=== PATIENT | female | born 1950 | race Caucasian/White ===

== ENCOUNTER 2020-10-04 14:16 | Inpatient (IN) ==
[2020-10-04] MEDS ORDERED: 0.9 % SODIUM CHLORIDE 1,000 ML IV ONE ×3 (14:43→16:56)
--- NOTE | 2020-10-04 15:18 | XRay Report ---
INDICATION: CP/dyspnea TECHNIQUE: AP portable upright chest x-ray COMPARISON: None FINDINGS: Lungs:Left perihilar infiltrate consistent with pneumonia. Follow-up radiographs recommended. Appearance is nonspecific. Covid pneumonia is possible Heart, vascular:No significant cardiomegaly. Pulmonary vascularity is normal. No pulmonary edema or pulmonary congestion Mediastinum, jose angel:No mediastinal widening. No hilar mass Pleura:No pleural fluid. No pleural-based mass or calcification Skeletal:Negative. IMPRESSION: Left perihilar infiltrate Interpreted and Authenticated by: Adan Enriquez 10/04/20
--- NOTE | 2020-10-04 15:49 | Emergency Department Note ---
Nausea/Vomiting/Diarrhea HPI General Chief complaint: Nausea/Vomiting/Diarrhea Stated complaint: diarrhea, fatigue Time Seen by Provider: 10/04/20 14:43 Source: patient Mode of arrival: ambulatory Limitations: no limitations History of Present Illness HPI Narrative: Narrative: 70-year-old patient presenting to the emergency department chief complaint of diarrhea. Patient does have sick contacts. Patient does have abdominal pain associated with this predominantly a crampy sensation. Patient does not have blood in stool. Patient does have symptoms to suggest volume depletion. Patient without recent or new occupational exposures/change in food or diet, recent camping or change in water supply. Patient reporting large volume watery diarrhea. Patient with recent antibiotic use. Patient has been started on Levaquin also has a positive sick contact with Covid. Related Data Home Medications Medication Instructions Recorded Confirmed blood sugar diagnostic [OneTouch 10/04/20 10/04/20 Ultra Blue Test Strip] clonazepam 0.5 - 1 mg PO QHS 10/04/20 10/04/20 diphenoxylate-atropine 1 tab PO PRN PRN MDD 5 10/04/20 10/04/20 glyburide 10 mg PO BID 10/04/20 10/04/20 levofloxacin 750 mg PO Q24H 10/04/20 10/04/20 metformin See Rx Instructions .ROUTE .COMPLEX 10/04/20 10/04/20 ramipril 10 mg PO QDAY 10/04/20 10/04/20 venlafaxine 150 mg PO DAILY 10/04/20 10/04/20 Allergies Allergy/AdvReac Type Severity Reaction Status Date / Time No Known Drug Allergies Allergy Unverified 10/04/20 14:20 Review of Systems ROS ROS Narrative: Narrative: All systems ED: reviewed and negative except as stated. Constitutional: Denies fever and chills Eyes: Denies vision change ENT ED: Denies ear pain and throat pain Cardiovascular: Denies chest pain and palpitations Respiratory: Denies shortness of breath and cough Gastrointestinal: Denies abdominal pain, nausea and vomiting Genitourinary: Denies dysuria and frequency Musculoskeletal: Denies back pain and joint swelling Integumentary: Denies rash and lesions Neurological: Denies headache and weakness Psychiatric: Denies anxiety and depression Endocrine: Denies fatigue and heat or cold intolerance Hematological/Lymphatic: Denies easy bleeding and easy bruising PFSH Narrative Patient History Narrative: Narrative: Diarrhea Medical/Surgical/Family History All Active Problems (Updated 10/05/20 @ 01:39 by Georges Nesbitt MD) Dehydration (Acute) Diarrhea (Acute) Tachycardia (Acute) Acute hyponatremia (Acute) Social History Smoking Status: Never smoker Exam Narrative Narrative: General: Alert, interactive, appropriate Head: Atraumatic, normocephalic Eyes: Extraocular movements intact, sclera anicteric, no conjunctival injection Ears: Pinnae normal, no discharge Mouth: Oral mucosa moist, no acute swelling or evidence of infection Nares: No nasal discharge, patent bilaterally Neck: Trachea midline, full range of motion Chest: Symmetrical chest wall rise, breathing normally; nonlabored respirations Abdomen: Nondistended, some mild diffuse tenderness Cardiovascular: Patient with excellent perfusion to the extremities; with tachycardia Skin: Patient without area of erythema, patient is without rash, no ascending lymphangitis or lymphadenopathy Extremities: Full range of motion joints, no obvious deformities Neuro: Alert, oriented x3, cranial nerves II through XII grossly intact, patient without lateralizing findings such as weakness, or abnormal reflexes Psychiatric: Normal affect, normal mood General Limitations: no limitations Eye Eye: Present normal appearance, PERRL and EOMI; Absent scleral icterus and conjunctival injection ENT ENT: Present normal oropharynx and mucous membranes moist Neck Neck: Present trachea midline; Absent lymphadenopathy and thyromegaly Chest Chest: Present symmetric chest wall rise Respiratory Respiratory: Present normal lung sounds bilaterally; Absent respiratory distress, wheezes, stridor, accessory muscle use and prolonged expiratory phase Cardiovascular Cardiovascular: Present regular rate and normal rhythm; Absent systolic murmur and diastolic murmur Adbominal Abdominal: Present soft; Absent distention, tenderness, guarding, rebound, rigi dity, organomegaly and mass Extremities Extremities: Absent pedal edema, pretibial edema and calf tenderness Back Back: Absent CVA tenderness (R), CVA tenderness (L) and spinous process tenderness Neurological Neurological: Present alert and oriented X3 Psychiatric Psychiatric: Present normal affect and normal mood Skin Skin: Present warm (WNL) and dry Course Vital Signs Vital signs: Vital Signs Temperature 98.5 F 10/04/20 14:17 Pulse Rate 118 H 10/04/20 14:17 Respiratory Rate 18 10/04/20 14:17 Blood Pressure 139/65 10/04/20 14:17 Pulse Oximetry (%) 94 12/07/20 14:17 Temperature 98.7 F 10/04/20 20:35 Pulse Rate 117 H 10/04/20 20:35 Respiratory Rate 23 H 10/04/20 22:40 Blood Pressure 118/63 10/04/20 22:00 Pulse Oximetry (%) 90 10/04/20 20:35 MDM MDM Narrative Medical decision making narrative: Focus of assessment in this particular case was to determine for hemodynamic instability or evidence of significant dehydration. Patient treated for this issue with parenteral rehydration. Despite 2 L patient was still significantly tachycardic. Patient was not given antidiarrheals at this time. Patient without evidence of peritoneal signs or f indings to suggest an acute emergent cause for the diarrhea thus imaging and laboratories were not performed in this particular case. Differential diagnosis includes bacterial, viral, parasitic causes of diarrhea, IBS, dietary related issues excessive alcohol licorice and caffeine, also considered neoplasm and inflammatory bowel disease, celiac disease, and drug-related side effect. Patient is Covid positive this is very likely the cause of infiltrate on chest x-ray as well as diarrhea. Patient noted to be hyponatremic with a sodium 126 patient also with some difficulty ambulating this could likely be secondary to acute reduction in her sodium causing neurological phenomenon. Patient noted to be Covid positive combining all of these features I discussed the case with Dr. Benoit and the consensus medical opinion is to admit the patient for ongoing care. Lab Data Result diagrams: 10/04/20 15:37 10/04/20 15:37 Labs: Lab Results 10/04/20 10/04/20 10/04/20 Range/Units 15:37 15:37 15:37 WBC 7.1 (4.5-11.0) K/mcL RBC 4.24 (4.00-5.20) M/mcL Hgb 12.6 (12.0-15.0) g/dL Hct 37.1 (36.0-48.0) % MCV 87.5 (80.0-100.0) fL MCH 29.7 (26.0-34.0) pg MCHC 34.0 (31.0-36.0) g/dL RDW 12.0 (11.5-14.5) % Plt Count 351 (140-440) K/mcL MPV 9.4 (7.4-10.4) fL Neut % (Auto) 70.2 (38.0-78.0) % Lymph % (Auto) 24.3 (15.0-49.0) % Haywood % (Auto) 5.4 (1.0-12.0) % Eos % (Auto) 0 (0.0-7.0) % Baso % (Auto) 0.1 (0.0-2.0) % Lymph # (Auto) 1.72 (1.50-4.80) K/mcL Haywood # (Auto) 0.38 (0.10-0.90) K/mcL Eos # (Auto) 0 (0.00-0.70) K/mcL Baso # (Auto) 0.01 (0.00-0.20) K/mcL Absolute Neutrophils 4.98 (1.80-8.00) K/mcL Sodium 126 L (133-145) mmol/L Potassium 4.1 (3.3-5.1) mmol/L Chloride 86 L (96-108) mmol/L Carbon Dioxide 25 (22-30) mmol/L Anion Gap 15.0 (8.0-16.0) BUN 10 (8-23) mg/dL Creatinine 1.0 (0.6-1.1) mg/dL GFR Calculation 57 Glucose 228 H (70-105) mg/dL Calcium 8.8 (8.6-10.4) mg/dL Total Bilirubin 0.4 (0.1-1.0) mg/dL AST 49 H (<32) U/L ALT 36 (<40) U/L Alkaline Phosphatase 142 H (39-117) U/L C-Reactive Protein 16.30 H (0.03-0.80) mg/dL Total Protein 6.9 (5.9-8.4) gm/dL Albumin 3.7 (3.2-5.2) gm/dL Globulin 3.2 (2.2-3.7) gm/dL Albumin/Globulin Ratio 1.2 (1.0-2.3) SARS-CoV-2 (PCR) (Negative) 10/04/20 Range/Units 15:40 WBC (4.5-11.0) K/mcL RBC (4.00-5.20) M/mcL Hgb (12.0-15.0) g/dL Hct (36.0-48.0) % MCV (80.0-100.0) fL MCH (26.0-34.0) pg MCHC (31.0-36.0) g/dL RDW (11.5-14.5) % Plt Count (140-440) K/mcL MPV (7.4-10.4) fL Neut % (Auto) (38.0-78.0) % Lymph % (Auto) (15.0-49.0) % Haywood % (Auto) (1.0-12.0) % Eos % (Auto) (0.0-7.0) % Baso % (Auto) (0.0-2.0) % Lymph # (Auto) (1.50-4.80) K/mcL Haywood # (Auto) (0.10-0.90) K/mcL Eos # (Auto) (0.00-0.70) K/mcL Baso # (Auto) (0.00-0.20) K/mcL Absolute Neutrophils (1.80-8.00) K/mcL Sodium (133-145) mmol/L Potassium (3.3-5.1) mmol/L Chloride (96-108) mmol/L Carbon Dioxide (22-30) mmol/L Anion Gap (8.0-16.0) BUN (8-23) mg/dL Creatinine (0.6-1.1) mg/dL GFR Calculation Glucose (70-105) mg/dL Calcium (8.6-10.4) mg/dL Total Bilirubin (0.1-1.0) mg/dL AST (<32) U/L ALT (<40) U/L Alkaline Phosphatase (39-117) U/L C-Reactive Protein (0.03-0.80) mg/dL Total Protein (5.9-8.4) gm/dL Albumin (3.2-5.2) gm/dL Globulin (2.2-3.7) gm/dL Albumin/Globulin Ratio (1.0-2.3) SARS-CoV-2 (PCR) Positive A (Negative) Discharge Plan Patient/Caregiver Discharge Instructions Pt seen by ASSOCIATE EMBALMER/FUNERAL DIRECTOR/PA only: No Clinical Impression: Dehydration, Diarrhea, Tachycardia, Acute hyponatremia Patient Disposition: Xfer As Inpt ([facility]) Condition: Serious Discharge Date/Time: 10/04/20 20:12
[2020-10-04 16:36] LABS: Basophils # (Auto) 0.01 K/mcL (0.00-0.20); Basophils % (Auto) 0.1 % (0.0-2.0); Eosinophils # (Auto) 0 K/mcL (0.00-0.70); Eosinophils % (Auto) 0 % (0.0-7.0); Hematocrit 37.1 % (36.0-48.0); Hemoglobin 12.6 g/dL (12.0-15.0); Lymphocytes # (Auto) 1.72 K/mcL (1.50-4.80); Lymphocytes % (Auto) 24.3 % (15.0-49.0); Mean Cell Volume 87.5 fL (80.0-100.0); Mean Platelet Volume 9.4 fL (7.4-10.4); Monocytes # (Auto) 0.38 K/mcL (0.10-0.90); Monocytes % (Auto) 5.4 % (1.0-12.0); Neutrophils % (Auto) 70.2 % (38.0-78.0); Platelet Count 351 K/mcL (140-440); RBC 4.24 M/mcL (4.00-5.20); WBC 7.1 K/mcL (4.5-11.0)
[2020-10-04 16:48] LABS: ALT/SGPT 36 U/L (<40); AST/SGOT 49 U/L (<32); Albumin 3.7 gm/dL (3.2-5.2); Albumin/Globulin Ratio 1.2 (1.0-2.3); Alkaline Phosphatase 142 U/L (39-117); Bilirubin,Total 0.4 mg/dL (0.1-1.0); Blood Urea Nitrogen 10 mg/dL (8-23); Calcium 8.8 mg/dL (8.6-10.4); Carbon Dioxide 25 mmol/L (22-30); Chloride 86 mmol/L (96-108); Globulin 3.2 gm/dL (2.2-3.7); Glomerular Filtration Rate 57; Glucose 228 mg/dL (70-105)
[2020-10-04] MEDS ORDERED: ACETAMINOPHEN 1,000 MG/100 ML BAG IV ONE (17:41)
--- NOTE | 2020-10-04 18:46 | Internal Med History&Physical ---
HPI History of Present Illness Patient information: Note initiated : 10/04/20 at 6:39 pm Service Date, if different from initiated Date: [] Patient: Wilda Leung a 70 y/o F admitted on for diarrhea, fatigue. Chief Complaint: dirrhea History of present illness: Ms. Leung is a 70 year old F with a history of DM type II/HTN/anxiety disorder who presents with 1 week onset of progressive weakness/fatigue malaise. Over the last 24 hours has been experiencing increasing nausea/diarrhea 5-6 episode in the last 24 hours. Patient was exposed to her parents who turned positive for Covid. However she was evaluated at [place] but was unable to be tested. With worsening symptoms including weakness fatigue and diarrhea she presents to [facility] ER. Initial work-up was consistent with Covid pneumonia/hyponatremia @ 126 along with SIRS with tachycardia 130 and tachypnea. Patient was started on crystalloids. Subsequently hospitalist service was consulted. At the time of my evaluation patient is fairly anxious, tachycardic at 130. Febrile at 102.5. She endorses history as above. Denies cough, shortness of breath endorses to weakness. Denies joint pain, rash, headache, photophobia. She denies loss of taste or smell. She feels hungry. Review of systems 10 point review system was performed and is negative except for ones discussed above PFSH PFSH All Active Problems (Updated 10/05/20 @ 01:39 by Georges Nesbitt MD) Dehydration (Acute) Diarrhea (Acute) Tachycardia (Acute) Acute hyponatremia (Acute) Social History smoking status: Never smoker MEDS/ALLERGIES Home Medications and Allergies Home Medications Medication Instructions Recorded Confirmed Type blood sugar diagnostic [OneTouch 10/04/20 10/04/20 History Ultra Blue Test Strip] clonazepam 0.5 - 1 mg PO QHS 10/04/20 10/04/20 History diphenoxylate-atropine 1 tab PO PRN PRN MDD 5 10/04/20 10/04/20 History glyburide 10 mg PO BID 10/04/20 10/04/20 History levofloxacin 750 mg PO Q24H 10/04/20 10/04/20 History metformin See Rx Instructions .ROUTE .COMPLEX 10/04/20 10/04/20 History ramipril 10 mg PO QDAY 10/04/20 10/04/20 History venlafaxine 150 mg PO DAILY 10/04/20 10/04/20 History Allergies Allergy/AdvReac Type Severity Reaction Status Date / Time No Known Drug Allergies Allergy Unverified 10/04/20 14:20 EXAM Constitutional Vitals: Temp Pulse Resp BP Pulse Ox 102.4 F H 126 H 13 132/49 96 10/04/20 17:42 10/04/20 18:16 10/04/20 18:31 10/04/20 18:31 10/04/20 18:31 Anxious but alert and cooperative Head normocephalic Oral cavity moist No ear nose discharge Eye movement symmetrical Neck supple no lymphadenopathy S1-S2 narrow complex tachycardia, occasionally irregular Nonlabored breathing, tachypneic Nondistended nontender abdomen Lower extremity no cyanosis clubbing or joint swelling Skin no suspicious lesion Psych no hallucinations Neuro normal higher function DATA Data Completed and Pending Labs: Labs from last 24 hours 10/04/20 10/04/20 10/04/20 15:40 15:37 15:37 WBC RBC Hgb Hct MCV MCH MCHC RDW Plt Count MPV Neut % (Auto) Lymph % (Auto) Henry % (Auto) Eos % (Auto) Baso % (Auto) Lymph # (Auto) Henry # (Auto) Eos # (Auto) Baso # (Auto) Absolute Neutrophils Sodium 126 L Potassium 4.1 Chloride 86 L Carbon Dioxide 25 Anion Gap 15.0 BUN 10 Creatinine 1.0 GFR Calculation 57 Glucose 228 H Calcium 8.8 Total Bilirubin 0.4 AST 49 H ALT 36 Alkaline Phosphatase 142 H C-Reactive Protein 16.30 H Total Protein 6.9 Albumin 3.7 Globulin 3.2 Albumin/Globulin Ratio 1.2 SARS-CoV-2 (PCR) Positive A 10/04/20 15:37 WBC 7.1 RBC 4.24 Hgb 12.6 Hct 37.1 MCV 87.5 MCH 29.7 MCHC 34.0 RDW 12.0 Plt Count 351 MPV 9.4 Neut % (Auto) 70.2 Lymph % (Auto) 24.3 Henry % (Auto) 5.4 Eos % (Auto) 0 Baso % (Auto) 0.1 Lymph # (Auto) 1.72 Henry # (Auto) 0.38 Eos # (Auto) 0 Baso # (Auto) 0.01 Absolute Neutrophils 4.98 Sodium Potassium Chloride Carbon Dioxide Anion Gap BUN Creatinine GFR Calculation Glucose Calcium Total Bilirubin AST ALT Alkaline Phosphatase C-Reactive Protein Total Protein Albumin Globulin Albumin/Globulin Ratio SARS-CoV-2 (PCR) A/P Narrative A/P Narrative: * COVID-19 pneumonia-start remdesivir/dexamethasone/COVID-19 precautions. * Acute viral syndrome with myalgias/weakness/dehydration continue crystalloid/supportive management * Symptomatic hyponatremia secondary to poor solute intake and diarrheal losses. Sodium 126. 4 hourly sodium checks. * HTN continue ramipril * Anxiety disorder continue venlafaxine/clonazepam * History of DM type II continue sitagliptin/Metformin/prandial insulin/CC diet * Full code * Prophylaxis heparin Plan * Inpatient PCU admission, cardiac monitoring * Supportive management * Serial imaging/coag and inflammatory markers * Remdesivir/dexamethasone/thrombosis prophylaxis * Pre-existing medical condition management home meds * Directed therapies/nutrition support/early mobilization * Discharge planning Time Spent With Patient Time: Total time spent is greater than 50% in coordination of care (as documented) at patient's floor/unit and/or counseling patient:
[2020-10-04] MEDS ORDERED: NEUTRA PHOS 1 PACKET PO PRN (20:22)
[2020-10-04] MEDS ORDERED: CALCIUM CHLORIDE 1,000 MG/10 ML SYRINGE IV PRN (20:22)
[2020-10-04] MEDS ORDERED: METOPROLOL TARTRATE 5 MG/5 ML VIAL IV PRN (20:22)
[2020-10-04] MEDS ORDERED: REMDESIVIR 200 MG in 0.9 % SODIUM CHLORIDE 250 ML IV ONE (20:22)
[2020-10-04] MEDS ORDERED: DEXTROSE 50% 50 ML VIAL IV PRN (20:22)
[2020-10-04] MEDS ORDERED: DEXTROSE 31 GM ORAL.SUSP PO PRN (20:22)
[2020-10-04] MEDS ORDERED: POTASSIUM CHLORIDE 20 MEQ PACKET PO PRN (20:22)
[2020-10-04] MEDS ORDERED: MELATONIN 3 MG TABLET PO PRN (20:22)
[2020-10-04] MEDS ORDERED: ONDANSETRON 4 MG/2 ML VIAL IV PRN (20:22)
[2020-10-04] MEDS ORDERED: POTASSIUM CHLORIDE 40 MEQ in DEXTROSE 5% IN WATER 500 ML IV PRN (20:22)
[2020-10-04] MEDS ORDERED: ACETAMINOPHEN 650 MG/65 ML BAG IV PRN (20:22)
[2020-10-04] MEDS ORDERED: ONDANSETRON 4 MG ODT TABLET SL PRN (20:22)
[2020-10-04] MEDS ORDERED: ACETAMINOPHEN 325 MG TABLET PO PRN (20:22)
[2020-10-04] MEDS ORDERED: POLYETHYLENE GLYCOL 3350 17 GM PACKET PO PRN (20:22)
[2020-10-04] MEDS ORDERED: BISACODYL 10 MG SUPP.RECT PR PRN (20:22)
[2020-10-04] MEDS ORDERED: MAGNESIUM SULFATE 2 GM/50 ML BAG IV PRN (20:22)
[2020-10-04] MEDS: 0.9 % SODIUM CHLORIDE 1,000 ML IV SCH ×2 (20:33→21:35)
[2020-10-04] MEDS: DOCUSATE SODIUM 100 MG CAPSULE PO SCH (20:33)
[2020-10-04] MEDS ORDERED: SENNOSIDES/DOCUSATE SODIUM 1 TAB TABLET PO SCH (21:00)
[2020-10-04] MEDS ORDERED: DIPHENOXYLATE HCL/ATROPINE 1 TABLET PO PRN (22:00)
[2020-10-04] MEDS: INSULIN LISPRO 1 UNIT/0.01 ML UNIT SQ SCH (22:11)
[2020-10-04] MEDS: 0.9 % SODIUM CHLORIDE 10 ML SYRINGE IV SCH (22:12)
[2020-10-04] MEDS: clonazePAM 0.5 MG TABLET PO SCH (22:24)
[2020-10-04] MEDS ORDERED: clonazePAM 1 MG TABLET ONE ×2 (22:28→23:25)
[2020-10-05] MEDS: 0.9 % SODIUM CHLORIDE 10 ML SYRINGE IV SCH ×3 (04:41→20:19)
[2020-10-05 05:47] LABS: Basophils # (Auto) 0.01 K/mcL (0.00-0.20); Basophils % (Auto) 0.2 % (0.0-2.0); Eosinophils # (Auto) 0 K/mcL (0.00-0.70); Eosinophils % (Auto) 0 % (0.0-7.0); Hematocrit 32.1 % (36.0-48.0); Lymphocytes # (Auto) 1.46 K/mcL (1.50-4.80); Lymphocytes % (Auto) 27.1 % (15.0-49.0); Mean Cell Volume 88.7 fL (80.0-100.0); Mean Corpuscular HGB Conc 34.3 g/dL (31.0-36.0); Mean Platelet Volume 9.4 fL (7.4-10.4); Monocytes # (Auto) 0.31 K/mcL (0.10-0.90); Monocytes % (Auto) 5.8 % (1.0-12.0); Neutrophils % (Auto) 66.9 % (38.0-78.0); Platelet Count 341 K/mcL (140-440); RBC 3.62 M/mcL (4.00-5.20); WBC 5.4 K/mcL (4.5-11.0)
[2020-10-05 06:48] LABS: ALT/SGPT 34 U/L (<40); AST/SGOT 45 U/L (<32); Albumin 2.9 gm/dL (3.2-5.2); Albumin/Globulin Ratio 1.1 (1.0-2.3); Alkaline Phosphatase 136 U/L (39-117); Bilirubin,Direct < 0.2 mg/dL (<0.3); Bilirubin,Total 0.2 mg/dL (0.1-1.0); Blood Urea Nitrogen 6 mg/dL (8-23); Calcium 7.6 mg/dL (8.6-10.4); Carbon Dioxide 21 mmol/L (22-30); Chloride 93 mmol/L (96-108); Globulin 2.7 gm/dL (2.2-3.7); Glomerular Filtration Rate 88; Glucose 200 mg/dL (70-105); Lactate Dehydrogenase 245 U/L (135-225); Phosphorous 1.7 mg/dL (2.5-4.5); Triglycerides 83 mg/dL (<150); Uric Acid 3.9 mg/dL (2.5-8.0)
[2020-10-05 07:01] LABS: Ferritin 482.2 ng/mL (30.0-400.0)
[2020-10-05] MEDS: metFORMIN 500 MG TABLET PO SCH (07:45)
[2020-10-05] MEDS: INSULIN LISPRO 1 UNIT/0.01 ML UNIT SQ SCH ×4 (07:55→20:19)
[2020-10-05] MEDS: MULTIVIT,THER IRON,CA,FA & MIN 1 TABLET PO SCH (08:38)
[2020-10-05] MEDS: DEXAMETHASONE 4 MG TABLET PO SCH (08:38)
[2020-10-05] MEDS: VENLAFAXINE 150 MG CAP.XL.24H PO SCH (08:38)
[2020-10-05] MEDS: RAMIPRIL 2.5 MG CAPSULE PO SCH (08:38)
[2020-10-05] MEDS: sitaGLIPtin 100 MG TABLET PO SCH ×2 (08:38→08:45)
[2020-10-05] MEDS: ENOXAPARIN 40 MG/0.4 ML SYRINGE SQ SCH (08:38)
[2020-10-05] MEDS: DOCUSATE SODIUM 100 MG CAPSULE PO SCH (08:39)
[2020-10-05] MEDS ORDERED: TIOTROPIUM BROMIDE 18 MCG INHALANT INH SCH (09:00)
[2020-10-05] MEDS: REMDESIVIR 100 MG in 0.9 % SODIUM CHLORIDE 250 ML IV SCH (09:31)
[2020-10-05] MEDS ORDERED: IBUPROFEN 200 MG TABLET PO PRN (10:35)
--- NOTE | 2020-10-05 14:20 | Internal Med Progress Note ---
SUBJECTIVE Subjective Patient information: Note initiated : 10/05/20 at 2:18 pm Service Date, if different from initiated Date: [] Patient: Wilda Leung a 70 y/o F admitted on 10/04/20 for diarrhea, fatigue. Chief Complaint: [] Interval history: Ms. Leung is a 70 year old F with a history of DM type II/HTN/anxiety disorder who presents with 1 week onset of progressive weakness/fatigue malaise. Over the last 24 hours has been experiencing inc reasing nausea/diarrhea 5-6 episode in the last 24 hours. Patient was exposed to her parents who turned positive for Covid. However she was evaluated at [place] but was unable to be tested. With worsening symptoms including weakness fatigue and diarrhea she presents to [facility] ER. Initial work-up was consistent with Covid pneumonia/hyponatremia @ 126 along with SIRS with tachycardia 130 and tachypnea. Patient was started on crystalloids. Subsequently hospitalist service was consulted. At the time of my evaluation patient is fairly anxious, tachycardic at 130. Febrile at 102.5. She endorses history as above. Denies cough, shortness of breath endorses to weakness. Denies joint pain, rash, headache, photophobia. She denies loss of taste or smell. She feels hungry. 10/05-patient clinically improved. Nausea improved. Able to tolerate diet. Diarrhea less frequent 2-3 times a day. White count 5.4, sodium improved to 131, magnesium 1.2 on replacement, phosphorus 1.7, on COVID-19 to questions. Afebrile. Stable hemodynamics with resolution of tachycardia. Constitutional Vitals: Vital Signs Temp Pulse Resp BP Pulse Ox 97.9 F 117 H 16 111/64 94 10/05/20 12:00 10/04/20 20:35 10/05/20 12:00 10/05/20 12:00 10/05/20 12:00 Period Temp Pulse Resp BP Sys/[place] Pulse Ox Last 24 Hr 97.9 F-102.6 F 53-127 13-32 97-148/39-86 85-99 Intake and Output 10/05/20 10/05/20 10/05/20 05:59 13:59 21:59 Intake Total 935 400 Output Total 900 1500 Balance 35 -1100 alert and oriented Nonlabored breathing Nondistended abdomen No anxiety No telemetry events except for occasional tachycardia Intake & Output: Intake & Output 10/05/20 10/05/20 10/05/20 05:59 13:59 21:59 Intake Total 935 400 Output Total 900 1500 Balance 35 -1100 Intake: IV 315 Veklury 200 mg In Sodium 250 Chloride 0.9% 250 ml @ 500 mls/ hr IV ONCE ONE Rx#:[id number] Oral 620 400 Output: Void Amount 825 1500 Stool 75 Other: Meal Breakfast Percent of Meal Consumed 75% Feeding Ability Independent Urine Appearance Clear Clear Urine Color Bright Yellow Pale Urine Odor Normal Stool Size Small Small Stool Color Brown Brown Stool Consistency Loose Watery Loose OBJ DATA Labs CBC & Chem 7: 10/05/20 04:14 10/05/20 08:07 Labs: Abnormal Lab Results 10/05/20 10/05/20 10/05/20 08:07 04:14 04:14 RBC Hgb Hct Lymph # (Auto) D-Dimer 1.37 H Sodium 131 L 129 L Chloride 93 L Carbon Dioxide 21 L BUN 6 L Glucose 200 H Calcium 7.6 L Phosphorus 1.7 L Magnesium 1.2 L Ferritin 482.2 H GGT 226 H AST 45 H Alkaline Phosphatase 136 H Lactate Dehydrogenase 245 H C-Reactive Protein Total Protein 5.6 L Albumin 2.9 L Procalcitonin SARS-CoV-2 (PCR) 10/05/20 10/05/20 10/04/20 04:14 04:14 15:40 RBC 3.62 L Hgb 11.0 L Hct 32.1 L Lymph # (Auto) 1.46 L D-Dimer Sodium Chloride Carbon Dioxide BUN Glucose Calcium Phosphorus Magnesium Ferritin GGT AST Alkaline Phosphatase Lactate Dehydrogenase C-Reactive Protein Total Protein Albumin Procalcitonin 0.24 H SARS-CoV-2 (PCR) Positive A 10/04/20 10/04/20 15:37 15:37 RBC Hgb Hct Lymph # (Auto) D-Dimer Sodium 126 L Chloride 86 L Carbon Dioxide BUN Glucose 228 H Calcium Phosphorus Magnesium Ferritin GGT AST 49 H Alkaline Phosphatase 142 H Lactate Dehydrogenase C-Reactive Protein 16.30 H Total Protein Albumin Procalcitonin SARS-CoV-2 (PCR) Meds: Medications Acetaminophen (Tylenol) 650 mg PO Q4-6HP PRN; Protocol PRN Reason: Per Pain Protocol/Fever > 101 Clonazepam (Klonopin) 0.5 - 1 mg PO QHS [facility] Last Admin: 10/04/20 22:24 Dose: 0.5 mg Documented by: Dexamethasone (Decadron) 6 mg PO DAILY [facility] Last Admin: 10/05/20 08:38 Dose: 6 mg Documented by: Dextrose (Dextrose 50%) 0 ml IV UD PRN PRN Reason: Hypoglycemia Diagnostic Test (Pha) (Accu-Chek) 1 each FS ACHS [facility] Last Admin: 10/05/20 11:13 Dose: 1 each Documented by: Diphenoxylate HCl/Atropine (Lomotil) 1 tab PO PRN PRN PRN Reason: Diarrhea Enoxaparin Sodium (Lovenox) 40 mg SQ DAILY [facility] Last Admin: 10/05/20 08:38 Dose: 40 mg Documented by: Glucose (Insta-Glucose) 15 gm PO PRN PRN PRN Reason: Hypoglycemia REMDESIVIR 100 mg/ Sodium (Chloride) 250 mls @ 500 mls/hr IV Q24H [facility] Stop: 10/08/20 10:29 Last Admin: 10/05/20 09:31 Dose: 500 mls/hr Documented by: Potassium Chloride 40 meq/ (Dextrose) 520 mls @ 130 mls/hr IV UD PRN PRN Reason: K+ = or < 3.5 Acetaminophen (Ofirmev) 650 mg in 65 mls @ 130 mls/hr IV Q6HP PRN; Protocol PRN Reason: Per Pain Protocol/Fever > 101 Last Infusion: 10/05/20 05:32 Dose: Infused Documented by: Magnesium Sulfate (Magnesium Sulfate) 2 gm in 50 mls @ 50 mls/hr IV UD PRN PRN Reason: MG = or < 1.7 Last Admin: 10/05/20 12:32 Dose: 50 mls/hr Documented by: Sodium Chloride (Sodium Chloride 0.9%) 1,000 mls @ 0 mls/hr IV BOLUS [facility] Last Infusion: 10/04/20 21:39 Dose: Infused Documented by: Sodium Chloride (Sodium Chloride 0.9%) 1,000 mls @ 50 mls/hr IV .Q20H [facility] Stop: 10/07/20 08:21 Last Admin: 10/04/20 21:35 Dose: 50 mls/hr Documented by: Ibuprofen (Motrin) 200 mg PO TIDP PRN; Protocol PRN Reason: Headache Insulin Human Lispro (Humalog) 0 unit SQ ACHS [facility]; Protocol Last Admin: 10/05/20 11:17 Dose: 6 units Documented by: Iron Carb/Multivit/[place]/Folic Acid (Multivitamin W/Minerals) 1 tab PO DAILY [facility] Last Admin: 10/05/20 08:38 Dose: 1 tab Documented by: Melatonin (Melatonin 3mg Tablet) 3 mg PO HSP PRN PRN Reason: Insomnia Metformin HCl (Glucophage) [facility] Last Admin: 10/05/20 07:45 Dose: 1,000 mg Documented by: Metformin HCl (Glucophage) 1,[facility] Metoprolol Tartrate (Lopressor) 5 mg IV Q5M PRN PRN Reason: Heart Rate > 140 bpm Last Admin: 10/05/20 08:47 Dose: 5 mg Documented by: Ondansetron HCl (Zofran Odt) 4 mg SL Q4-6HP PRN; Protocol PRN Reason: Nausea And Vomiting Ondansetron HCl (Zofran) 4 mg IV Q4-6HP PRN; Protocol PRN Reason: Nausea And Vomiting Pneumococcal Polyvalent Vaccine (Pneumovax 23) 0.5 ml IM .ONCE ONE Stop: 10/06/20 10:01 Potassium Chloride (Klor-Con) 40 meq PO DAILYP PRN PRN Reason: K+ < 3.5 Potassium/Phosphorus/Sodium (Neutra Phos) 2 packet PO DAILYP PRN PRN Reason: PHOS <2.5 Last Admin: 10/05/20 12:32 Dose: 2 packet Documented by: Ramipril (Altace) 10 mg PO QDAY [facility] Last Admin: 10/05/20 08:38 Dose: 10 mg Documented by: Sodium Chloride (Saline Flush) 10 ml IV Q8 [facility] Last Admin: 10/05/20 12:32 Dose: 10 ml Documented by: Venlafaxine HCl (Effexor Xr) 150 mg PO DAILY [facility] Last Admin: 10/05/20 08:38 Dose: 150 mg Documented by: A/P Narrative A/P Narrative: * COVID-19 pneumonia-clinically improving. Continue remdesivir/d examethasone/COVID-19 precautions. * Acute viral syndrome with myalgias/weakness/dehydration clinically improved with supportive management. * Symptomatic hyponatremia secondary to poor solute intake and diarrheal losses. Sodium improved to 131. * HTN stable on home dose ramipril * Anxiety disorder continue venlafaxine/clonazepam * History of DM type II continue sitagliptin/Metformin/prandial insulin/CC diet * Full code * Prophylaxis heparin Plan * Continue supportive management * Serial imaging/coag and inflammatory markers * Remdesivir/dexamethasone/thrombosis prophylaxis * Pre-existing medical condition management on home meds * Continue directed therapies/nutrition support/early mobilization * Discharge planning Time Spent With Patient Time: Total time spent is greater than 50% in coordination of care (as documented) at patient's floor/unit and/or counseling patient:
[2020-10-05] MEDS: 0.9 % SODIUM CHLORIDE 1,000 ML IV SCH ×2 (17:20→18:36)
[2020-10-05] MEDS ORDERED: metFORMIN 500 MG TABLET PO SCH (17:30)
[2020-10-05] MEDS: clonazePAM 0.5 MG TABLET PO SCH (20:18)
[2020-10-06] MEDS: 0.9 % SODIUM CHLORIDE 10 ML SYRINGE IV SCH ×3 (05:30→21:38)
--- NOTE | 2020-10-06 05:52 | XRay Report ---
INDICATION: Interval Change TECHNIQUE: AP portable upright chest x-ray COMPARISON: Previous chest x-ray dated 10/04/2020 FINDINGS: Lungs:Increasing pulmonary parenchymal infiltrates bilaterally. Infiltrates are interstitial and predominantly peripheral. Appearance is consistent with covid pneumonia. Infiltrates have progressed significantly since prior examination. Heart, vascular:No significant cardiomegaly. Pulmonary vascularity is normal. No pulmonary edema or pulmonary congestion Mediastinum, jose angel:No mediastinal widening. No hilar mass Pleura:No pleural fluid. No pleural-based mass or calcification Skeletal:Negative. IMPRESSION: 1. Bilateral pulmonary parenchymal infiltrates. Appearance is consistent with covid pneumonia 2. Interval worsening since 10/04/2020 Interpreted and Authenticated by: Adan Enriquez 10/06/20
[2020-10-06 06:41] LABS: Basophils # (Auto) 0 K/mcL (0.00-0.20); Basophils % (Auto) 0 % (0.0-2.0); Eosinophils # (Auto) 0 K/mcL (0.00-0.70); Eosinophils % (Auto) 0 % (0.0-7.0); Hematocrit 31.4 % (36.0-48.0); Hemoglobin 10.3 g/dL (12.0-15.0); Lymphocytes % (Auto) 29.9 % (15.0-49.0); Mean Cell Volume 91.5 fL (80.0-100.0); Mean Corpuscular HGB Conc 32.8 g/dL (31.0-36.0); Mean Platelet Volume 9.6 fL (7.4-10.4); Monocytes % (Auto) 6.4 % (1.0-12.0); Neutrophils % (Auto) 63.7 % (38.0-78.0); Platelet Count 386 K/mcL (140-440); RBC 3.43 M/mcL (4.00-5.20); Red Cell Distribution Width 12.5 % (11.5-14.5); WBC 4.7 K/mcL (4.5-11.0)
[2020-10-06 07:03] LABS: ALT/SGPT 42 U/L (<40); AST/SGOT 36 U/L (<32); Albumin 2.7 gm/dL (3.2-5.2); Alkaline Phosphatase 134 U/L (39-117); Bilirubin,Direct < 0.2 mg/dL (<0.3); Bilirubin,Total 0.2 mg/dL (0.1-1.0); Blood Urea Nitrogen 15 mg/dL (8-23); Calcium 8.3 mg/dL (8.6-10.4); Carbon Dioxide 24 mmol/L (22-30); Chloride 99 mmol/L (96-108); Globulin 2.6 gm/dL (2.2-3.7); Glomerular Filtration Rate 93; Glucose 243 mg/dL (70-105); Lactate Dehydrogenase 185 U/L (135-225); Phosphorous 3.1 mg/dL (2.5-4.5); Triglycerides 50 mg/dL (<150); Uric Acid 3.8 mg/dL (2.5-8.0)
[2020-10-06] MEDS: RAMIPRIL 2.5 MG CAPSULE PO SCH (08:53)
[2020-10-06] MEDS: ENOXAPARIN 40 MG/0.4 ML SYRINGE SQ SCH ×2 (08:53→21:37)
[2020-10-06] MEDS: INSULIN LISPRO 1 UNIT/0.01 ML UNIT SQ SCH ×4 (08:53→21:35)
[2020-10-06] MEDS: MULTIVIT,THER IRON,CA,FA & MIN 1 TABLET PO SCH (08:54)
[2020-10-06] MEDS: metFORMIN 500 MG TABLET PO SCH ×2 (08:54→17:28)
[2020-10-06] MEDS: DEXAMETHASONE 4 MG TABLET PO SCH (08:54)
[2020-10-06] MEDS: VENLAFAXINE 150 MG CAP.XL.24H PO SCH (08:54)
[2020-10-06] MEDS ORDERED: PNEUMOCOCCAL 23-VAL P-SAC VAC 0.5 ML SYRINGE IM ONE (10:00)
[2020-10-06] MEDS: REMDESIVIR 100 MG in 0.9 % SODIUM CHLORIDE 250 ML IV SCH (10:32)
--- NOTE | 2020-10-06 10:33 | Internal Med Progress Note ---
SUBJECTIVE Subjective Patient information: Note initiated : 10/06/20 at 10:32 am Service Date, if different from initiated Date: [] Patient: Wilda Leung a 70 y/o F admitted on 10/04/20 for diarrhea, fatigue. Chief Complaint: [] Interval history: Ms. Leung is a 70 year old F with a history of DM type II/HTN/anxiety disorder who presents with 1 week onset of progressive weakness/fatigue malaise. Over the last 24 hours has been experiencing in creasing nausea/diarrhea 5-6 episode in the last 24 hours. Patient was exposed to her parents who turned positive for Covid. However she was evaluated at [place] but was unable to be tested. With worsening symptoms including weakness fatigue and diarrhea she presents to located within [facility] ER. Initial work-up was consistent with Covid pneumonia/hyponatremia @ 126 along with SIRS with tachycardia 130 and tachypnea. Patient was started on crystalloids. Subsequently hospitalist service was consulted. At the time of my evaluation patient is fairly anxious, tachycardic at 130. Febrile at 102.5. She endorses history as above. Denies cough, shortness of breath endorses to weakness. Denies joint pain, rash, headache, photophobia. She denies loss of taste or smell. She feels hungry. 10/05-patient clinically improved. Nausea improved. Able to tolerate diet. Diarrhea less frequent 2-3 times a day. White count 5.4, sodium improved to 131, magnesium 1.2 on replacement, phosphorus 1.7, on COVID-19 to questions. Afebrile. Stable hemodynamics with resolution of tachycardia. 10/06-patient doing well. On day 3 remdesivir. Worsening chest imaging however currently on room air. Improved diarrhea. Tolerating diet. Ongoing physical therapy. White count 4.7. Electrolytes improved. Transition to twice daily Lovenox based on elevated CRP/D-dimer. Continue therapies as tolerated. Caroline nuation support Constitutional Vitals: vital Signs Temp Pulse Resp BP Pulse Ox 97.9 F 117 H 21 117/67 94 10/06/20 08:00 10/04/20 20:35 10/06/20 10:01 10/06/20 10:01 10/06/20 10:01 Period Temp Pulse Resp BP Sys/Tarango Pulse Ox Last 24 Hr 97.9 F-98.5 F 16-36 95-118/46-73 85-98 Intake and Output 10/05/20 10/06/20 10/06/20 21:59 05:59 13:59 Intake Total 1348 150 650 Output Total 1150 100 Balance 198 150 550 Weight 71.849 kg Alert and oriented No anxiety Nonlabored breathing Nondistended abdomen Intake & Output: Intake & Output 10/05/20 10/06/20 10/06/20 21:59 05:59 13:59 Intake Total 1348 150 650 Output Total 1150 100 Balance 198 150 550 Weight 71.849 kg Intake: IV 988 Sodium Chloride 0.9% 1,000 ml @ 988 50 mls/hr IV .Q20H [facility] Rx#: [id number] Oral 360 150 650 Output: Void Amount 1150 100 Other: Meal Lunch Dinner Breakfast Percent of Meal Consumed 75% 100% 50% Feeding Ability Independent Urine Appearance Clear Urine Color Pale Urine Odor Normal Stool Size Small Large Stool Color Brown Stool Consistency Watery Loose Loose # Voids 1 # Bowel Movements 1 1 # of times incontinent of 0 Bowels OBJ DATA Labs CBC & Chem 7: 10/06/20 05:02 10/06/20 05:02 Labs: Abnormal Lab Results 10/06/20 10/06/20 10/06/20 05:02 05:02 05:02 RBC 3.43 L Hgb 10.3 L Hct 31.4 L Lymph # (Auto) 1.40 L D-Dimer 0.86 H Sodium Chloride Carbon Dioxide BUN Glucose 243 H Calcium 8.3 L Phosphorus Magnesium Ferritin GGT 198 H AST 36 H ALT 42 H Alkaline Phosphatase 134 H Lactate Dehydrogenase C-Reactive Protein Total Protein 5.3 L Albumin 2.7 L Procalcitonin SARS-CoV-2 (PCR) 10/05/20 10/05/20 10/05/20 08:07 04:14 04:14 RBC Hgb Hct Lymph # (Auto) D-Dimer 1.37 H Sodium 131 L 129 L Chloride 93 L Carbon Dioxide 21 L BUN 6 L Glucose 200 H Calcium 7.6 L Phosphorus 1.7 L Magnesium 1.2 L Ferritin 482.2 H GGT 226 H AST 45 H ALT Alkaline Phosphatase 136 H Lactate Dehydrogenase 245 H C-Reactive Protein Total Protein 5.6 L Albumin 2.9 L Procalcitonin SARS-CoV-2 (PCR) 10/05/20 10/05/20 10/04/20 04:14 04:14 15:40 RBC 3.62 L Hgb 11.0 L Hct 32.1 L Lymph # (Auto) 1.46 L D-Dimer Sodium Chloride Carbon Dioxide BUN Glucose Calcium Phosphorus Magnesium Ferritin GGT AST ALT Alkaline Phosphatase Lactate Dehydrogenase C-Reactive Protein Total Protein Albumin Procalcitonin 0.24 H SARS-CoV-2 (PCR) Positive A 10/04/20 10/04/20 15:37 15:37 RBC Hgb Hct Lymph # (Auto) D-Dimer Sodium 126 L Chloride 86 L Carbon Dioxide BUN Glucose 228 H Calcium Phosphorus Magnesium Ferritin GGT AST 49 H ALT Alkaline Phosphatase 142 H Lactate Dehydrogenase C-Reactive Protein 16.30 H Total Protein Albumin Procalcitonin SARS-CoV-2 (PCR) Meds: Medications Acetaminophen (Tylenol) 650 mg PO Q4-6HP PRN; Protocol PRN Reason: Per Pain Protocol/Fever > 101 Clonazepam (Klonopin) 0.5 - 1 mg PO QHS [facility] Last Admin: 10/05/20 20:18 Dose: 1 mg Documented by: Dexamethasone (Decadron) 6 mg PO DAILY [facility] Last Admin: 10/06/20 08:54 Dose: 6 mg Documented by: Dextrose (Dextrose 50%) 0 ml IV UD PRN PRN Reason: Hypoglycemia Diagnostic Test (Pha) (Accu-Chek) 1 each FS ACHS [facility] Last Admin: 10/06/20 08:20 Dose: 1 each Documented by: Diphenoxylate HCl/Atropine (Lomotil) 1 tab PO PRN PRN PRN Reason: Diarrhea Enoxaparin Sodium (Lovenox) 40 mg SQ DAILY [facility] Last Admin: 10/06/20 08:53 Dose: 40 mg Documented by: Glucose (Insta-Glucose) 15 gm PO PRN PRN PRN Reason: Hypoglycemia REMDESIVIR 100 mg/ Sodium (Chloride) 250 mls @ 500 mls/hr IV Q24H [facility] Stop: 10/08/20 10:29 Last Infusion: 10/05/20 10:01 Dose: Infused Documented by: Potassium Chloride 40 meq/ (Dextrose) 520 mls @ 130 mls/hr IV UD PRN PRN Reason: K+ = or < 3.5 Acetaminophen (Ofirmev) 650 mg in 65 mls @ 130 mls/hr IV Q6HP PRN; Protocol PRN Reason: Per Pain Protocol/Fever > 101 Last Infusion: 10/05/20 05:32 Dose: Infused Documented by: Magnesium Sulfate (Magnesium Sulfate) 2 gm in 50 mls @ 50 mls/hr IV UD PRN PRN Reason: MG = or < 1.7 Last Admin: 10/05/20 12:32 Dose: 50 mls/hr Documented by: Sodium Chloride (Sodium Chloride 0.9%) 1,000 mls @ 0 mls/hr IV BOLUS [facility] Last Admin: 10/05/20 18:36 Dose: Not Given Documented by: Sodium Chloride (Sodium Chloride 0.9%) 1,000 mls @ 50 mls/hr IV .Q20H [facility] Stop: 10/07/20 08:21 Last Admin: 10/05/20 17:20 Dose: 50 mls/hr Documented by: Ibuprofen (Motrin) 200 mg PO TIDP PRN; Protocol PRN Reason: Headache Insulin Human Lispro (Humalog) 0 unit SQ ACHS [facility]; Protocol Last Admin: 10/06/20 08:53 Dose: 3 units Documented by: Iron Carb/Multivit/[place]/Folic Acid (Multivitamin W/Minerals) 1 tab PO DAILY [facility] Last Admin: 10/06/20 08:54 Dose: 1 tab Documented by: Melatonin (Melatonin 3mg Tablet) 3 mg PO HSP PRN PRN Reason: Insomnia Metformin HCl (Glucophage) 1,000 mg PO QAC [facility] Last Admin: 10/06/20 08:54 Dose: 1,000 mg Documented by: Metformin [facility] (Glucophage) [facility] Last Admin: 10/05/20 17:19 Dose: 1,500 mg Documented by: Metoprolol Tartrate (Lopressor) 5 mg IV Q5M PRN PRN Reason: Heart Rate > 140 bpm Last Admin: 10/05/20 08:47 Dose: 5 mg Documented by: Ondansetron HCl (Zofran Odt) 4 mg SL Q4-6HP PRN; Protocol PRN Reason: Nausea And Vomiting Ondansetron HCl (Zofran) 4 mg IV Q4-6HP PRN; Protocol PRN Reason: Nausea And Vomiting Potassium Chloride (Klor-Con) 40 meq PO DAILYP PRN PRN Reason: K+ < 3.5 Potassium/Phosphorus/Sodium (Neutra Phos) 2 packet PO DAILYP PRN PRN Reason: PHOS <2.5 Last Admin: 10/05/20 12:32 Dose: 2 packet Documented by: Ramipril (Altace) 10 mg PO QDAY [facility] Last Admin: 10/06/20 08:53 Dose: 10 mg Documented by: Sodium Chloride (Saline Flush) 10 ml IV Q8 [facility] Last Admin: 10/06/20 05:30 Dose: Not Given Documented by: Venlafaxine HCl (Effexor Xr) 150 mg PO DAILY [facility] Last Admin: 10/06/20 08:54 Dose: 150 mg Documented by: A/P Narrative A/P Narrative: * COVID-19 pneumonia-clinically improving currently on room air. However worsening interval chest imaging. Continue day 3/5 remdesivir/dexamethasone/COVID-19 precautions. * Acute viral syndrome with myalgias/weakness/dehydration -clinically improved * Symptomatic hyponatremia secondary to poor solute intake and diarrheal losses. Normalized now at 134 * HTN stable on home dose ramipril * Anxiety disorder continue venlafaxine/clonazepam * History of DM type II continue sitagliptin/Metformin/prandial insulin/CC diet * Full code * Prophylaxis start twice daily Lovenox Plan * Continue supportive management * Twice daily Lovenox * Day 3 remdesivir/dexamethasone/thrombosis prophylaxis * Pre-existing medical condition management on home meds * Continue directed therapies/nutrition support/early mobilization * Discharge planning likely in 48 hours pending clinical improvement Time Spent With Patient Time: Total time spent is greater than 50% in coordination of care (as documented) at patient's floor/unit and/or counseling patient:
[2020-10-06] MEDS ORDERED: METOPROLOL TARTRATE 5 MG/5 ML VIAL IV PRN (12:12)
[2020-10-06] MEDS ORDERED: MELATONIN 3 MG TABLET PO PRN (12:12)
[2020-10-06] MEDS ORDERED: ONDANSETRON 4 MG/2 ML VIAL IV PRN (12:12)
[2020-10-06] MEDS ORDERED: ONDANSETRON 4 MG ODT TABLET SL PRN (12:12)
[2020-10-06] MEDS ORDERED: DEXTROSE 31 GM ORAL.SUSP PO PRN (12:12)
[2020-10-06] MEDS ORDERED: DIPHENOXYLATE HCL/ATROPINE 1 TABLET PO PRN (12:12)
[2020-10-06] MEDS ORDERED: POTASSIUM CHLORIDE 20 MEQ PACKET PO PRN (12:12)
[2020-10-06] MEDS ORDERED: NEUTRA PHOS 1 PACKET PO PRN (12:12)
[2020-10-06] MEDS ORDERED: IBUPROFEN 200 MG TABLET PO PRN (12:12)
[2020-10-06] MEDS ORDERED: DEXTROSE 50% 50 ML VIAL IV PRN (12:12)
[2020-10-06] MEDS ORDERED: POTASSIUM CHLORIDE 40 MEQ in DEXTROSE 5% IN WATER 500 ML IV PRN (12:12)
[2020-10-06] MEDS ORDERED: ACETAMINOPHEN 650 MG/65 ML BAG IV PRN (12:12)
[2020-10-06] MEDS ORDERED: MAGNESIUM SULFATE 2 GM/50 ML BAG IV PRN (12:12)
[2020-10-06] MEDS: ACETAMINOPHEN 325 MG TABLET PO PRN (12:23)
[2020-10-06] MEDS ORDERED: ENOXAPARIN 40 MG/0.4 ML SYRINGE SQ SCH (21:00)
[2020-10-06] MEDS: clonazePAM 0.5 MG TABLET PO SCH (21:36)
[2020-10-07] MEDS: ACETAMINOPHEN 325 MG TABLET PO PRN (04:25)
[2020-10-07] MEDS: 0.9 % SODIUM CHLORIDE 10 ML SYRINGE IV SCH ×3 (05:44→21:14)
[2020-10-07 06:35] LABS: Basophils # (Auto) 0 K/mcL (0.00-0.20); Basophils % (Auto) 0 % (0.0-2.0); Eosinophils # (Auto) 0 K/mcL (0.00-0.70); Eosinophils % (Auto) 0 % (0.0-7.0); Hematocrit 28.3 % (36.0-48.0); Hemoglobin 9.6 g/dL (12.0-15.0); Lymphocytes # (Auto) 1.72 K/mcL (1.50-4.80); Lymphocytes % (Auto) 21.5 % (15.0-49.0); Mean Cell Volume 88.4 fL (80.0-100.0); Mean Corpuscular HGB Conc 33.9 g/dL (31.0-36.0); Mean Platelet Volume 9.4 fL (7.4-10.4); Monocytes # (Auto) 0.35 K/mcL (0.10-0.90); Monocytes % (Auto) 4.4 % (1.0-12.0); Neutrophils % (Auto) 74.1 % (38.0-78.0); Platelet Count 422 K/mcL (140-440); Red Cell Distribution Width 12.2 % (11.5-14.5)
[2020-10-07 07:17] LABS: ALT/SGPT 34 U/L (<40); AST/SGOT 22 U/L (<32); Albumin 2.7 gm/dL (3.2-5.2); Albumin/Globulin Ratio 1.1 (1.0-2.3); Alkaline Phosphatase 124 U/L (39-117); Bilirubin,Direct < 0.2 mg/dL (<0.3); Bilirubin,Total 0.2 mg/dL (0.1-1.0); Blood Urea Nitrogen 18 mg/dL (8-23); Carbon Dioxide 24 mmol/L (22-30); Chloride 103 mmol/L (96-108); Globulin 2.5 gm/dL (2.2-3.7); Glomerular Filtration Rate 93; Glucose 289 mg/dL (70-105); Lactate Dehydrogenase 178 U/L (135-225); Phosphorous 3.2 mg/dL (2.5-4.5); Triglycerides 75 mg/dL (<150)
[2020-10-07] MEDS: INSULIN LISPRO 1 UNIT/0.01 ML UNIT SQ SCH ×4 (08:33→21:13)
[2020-10-07] MEDS: RAMIPRIL 2.5 MG CAPSULE PO SCH (08:34)
[2020-10-07] MEDS: ENOXAPARIN 40 MG/0.4 ML SYRINGE SQ SCH ×2 (08:34→21:14)
[2020-10-07] MEDS: metFORMIN 500 MG TABLET PO SCH ×2 (08:34→17:07)
[2020-10-07] MEDS: MULTIVIT,THER IRON,CA,FA & MIN 1 TABLET PO SCH (08:35)
[2020-10-07] MEDS: DEXAMETHASONE 4 MG TABLET PO SCH (08:35)
[2020-10-07] MEDS: VENLAFAXINE 150 MG CAP.XL.24H PO SCH (08:35)
--- NOTE | 2020-10-07 10:12 | Internal Med Progress Note ---
SUBJECTIVE Subjective Patient information: Note initiated : 10/07/20 at 10:10 am Service Date, if different from initiated Date: [] Patient: Wilda Leung a 70 y/o F admitted on 10/04/20 for diarrhea, fatigue. Chief Complaint: [] Interval history: Ms. Leung is a 70 year old F with a history of DM type II/HTN/anxiety disorder who presents with 1 week onset of progressive weakness/fatigue malaise. Over the last 24 hours has been experiencing in creasing nausea/diarrhea 5-6 episode in the last 24 hours. Patient was exposed to her parents who turned positive for Covid. However she was evaluated at [place] but was unable to be tested. With worsening symptoms including weakness fatigue and diarrhea she presents to [facility] ER. Initial work-up was consistent with Covid pneumonia/hyponatremia @ 126 along with SIRS with tachycardia 130 and tachypnea. Patient was started on crystalloids. Subsequently hospitalist service was consulted. At the time of my evaluation patient is fairly anxious, tachycardic at 130. Febrile at 102.5. She endorses history as above. Denies cough, shortness of breath endorses to weakness. Denies joint pain, rash, headache, photophobia. She denies loss of taste or smell. She feels hungry. 10/05-patient clinically improved. Nausea improved. Able to tolerate diet. Diarrhea less frequent 2-3 times a day. White count 5.4, sodium improved to 131, magnesium 1.2 on replacement, phosphorus 1.7, on COVID-19 to questions. Afebrile. Stable hemodynamics with resolution of tachycardia. 10/06-patient doing well. On day 3 remdesivir. Worsening chest imaging however currently on room air. Improved diarrhea. Tolerating diet. Ongoing physical therapy. White count 4.7. Electrolytes improved. Transition to twice daily Lovenox based on elevated CRP/D-dimer. Continue therapies as tolerated. Craoline nuation support 10/07-patient doing well. No nausea or diarrhea. Tolerating diet. On day 4 remdesivir. Anticipate discharge in 24 hours. No evidence of hypoxemia. Continue therapies as tolerated. Constitutional Vitals: Vital Signs Temp Pulse Resp BP Pulse Ox 97.6 F 71 18 121/70 95 10/07/20 08:00 10/07/20 08:15 10/07/20 08:00 10/07/20 08:00 10/07/20 08:15 Period Temp Pulse Resp BP Sys/Tarango Pulse Ox Last 24 Hr 97.2 F-99 F 71-106 - 102-142/50-99 92-99 Intake and Output 10/06/20 10/07/20 10/07/20 21:59 05:59 13:59 Intake Total 1050 100 Output Total 1475 1100 1 Balance -425 -1000 -1 Weight 71.486 kg Alert oriented Nonlabored breathing No anxiety Nondistended abdomen Intake & Output: Intake & Output 10/06/20 10/07/20 10/07/20 21:59 05:59 13:59 Intake Total 1050 100 Output Total 1475 1100 1 Balance -425 -1000 -1 Weight 71.486 kg Intake: Oral 1050 100 Output: Void Amount 1475 1100 # of times incontinent of urine 1 Other: Urine Appearance Clear Urine Color Pale Urine Odor Normal Stool Size Large Stool Color Brown Yellow Stool Consistency Loose # Voids 0 # Bowel Movements 1 # of times incontinent of 0 Bowels OBJ DATA Labs CBC & Chem 7: 10/07/20 05:12 10/07/20 05:12 Labs: Abnormal Lab Results 10/07/20 10/07/20 10/06/20 05:12 05:12 05:02 RBC 3.20 L Hgb 9.6 L Hct 28.3 L Lymph # (Auto) D-Dimer Sodium Chloride Carbon Dioxide BUN Glucose 289 H 243 H Calcium 8.3 L Phosphorus Magnesium Ferritin GGT 167 H 198 H AST 36 H ALT 42 H Alkaline Phosphatase 124 H 134 H Lactate Dehydrogenase C-Reactive Protein Total Protein 5.2 L 5.3 L Albumin 2.7 L 2.7 L Procalcitonin SARS-CoV-2 (PCR) 10/06/20 10/06/20 10/05/20 05:02 05:02 08:07 RBC 3.43 L Hgb 10.3 L Hct 31.4 L Lymph # (Auto) 1.40 L D-Dimer 0.86 H Sodium 131 L Chloride Carbon Dioxide BUN Glucose Calcium Phosphorus Magnesium Ferritin GGT AST ALT Alkaline Phosphatase Lactate Dehydrogenase C-Reactive Protein Total Protein Albumin Procalcitonin SARS-CoV-2 (PCR) 10/05/20 10/05/20 10/05/20 04:14 04:14 04:14 RBC 3.62 L Hgb 11.0 L Hct 32.1 L Lymph # (Auto) 1.46 L D-Dimer 1.37 H Sodium 129 L Chloride 93 L Carbon Dioxide 21 L BUN 6 L Glucose 200 H Calcium 7.6 L Phosphorus 1.7 L Magnesium 1.2 L Ferritin 482.2 H GGT 226 H AST 45 H ALT Alkaline Phosphatase 136 H Lactate Dehydrogenase 245 H C-Reactive Protein Total Protein 5.6 L Albumin 2.9 L Procalcitonin SARS-CoV-2 (PCR) 10/05/20 10/04/20 10/04/20 04:14 15:40 15:37 RBC Hgb Hct Lymph # (Auto) D-Dimer Sodium Chloride Carbon Dioxide BUN Glucose Calcium Phosphorus Magnesium Ferritin GGT AST ALT Alkaline Phosphatase Lactate Dehydrogenase C-Reactive Protein 16.30 H Total Protein Albumin Procalcitonin 0.24 H SARS-CoV-2 (PCR) Positive A 10/04/20 15:37 RBC Hgb Hct Lymph # (Auto) D-Dimer Sodium 126 L Chloride 86 L Carbon Dioxide BUN Glucose 228 H Calcium Phosphorus Magnesium Ferritin GGT AST 49 H ALT Alkaline Phosphatase 142 H Lactate Dehydrogenase C-Reactive Protein Total Protein Albumin Procalcitonin SARS-CoV-2 (PCR) Meds: Medications Acetaminophen (Tylenol) 650 mg PO Q4-6HP PRN; Protocol PRN Reason: Per Pain Protocol/Fever > 101 Last Admin: 10/07/20 04:25 Dose: 650 mg Documented by: Clonazepam (Klonopin) 0.5 - 1 mg PO QHS [facility] Last Admin: 10/06/20 21:36 Dose: 0.5 mg Documented by: Dexamethasone (Decadron) 6 mg PO DAILY [facility] Last Admin: 10/07/20 08:35 Dose: 6 mg Documented by: Dextrose (Dextrose 50%) 0 ml IV UD PRN PRN Reason: Hypoglycemia Diagnostic Test (Pha) (Accu-Chek) 1 each FS ACHS [facility] Last Admin: 10/07/20 07:36 Dose: 1 each Documented by: Diphenoxylate HCl/Atropine (Lomotil) 1 tab PO PRN PRN PRN Reason: Diarrhea Enoxaparin Sodium (Lovenox) 40 mg SQ BID [facility] Last Admin: 10/07/20 08:34 Dose: 40 mg Documented by: Glucose (Insta-Glucose) 15 gm PO PRN PRN PRN Reason: Hypoglycemia Acetaminophen (Ofirmev) 650 mg in 65 mls @ 130 mls/hr IV Q6HP PRN; Protocol PRN Reason: Per Pain Protocol/Fever > 101 Magnesium Sulfate (Magnesium Sulfate) 2 gm in 50 mls @ 50 mls/hr IV UD PRN PRN Reason: MG = or < 1.7 REMDESIVIR 100 mg/ Sodium (Chloride) 250 mls @ 500 mls/hr IV Q24H [facility] Stop: 10/08/20 10:29 Potassium Chloride 40 meq/ (Dextrose) 520 mls @ 130 mls/hr IV UD PRN PRN Reason: K+ = or < 3.5 Ibuprofen (Motrin) 200 mg PO TIDP PRN; Protocol PRN Reason: Headache Insulin Human Lispro (Humalog) 0 unit SQ ACHS [facility]; Protocol Last Admin: 10/07/20 08:33 Dose: 3 units Documented by: Iron Carb/Multivit/[place]/Folic Acid (Multivitamin W/Minerals) 1 tab PO DAILY [facility] Last Admin: 10/07/20 08:35 Dose: 1 tab Documented by: Melatonin (Melatonin 3mg Tablet) 3 mg PO HSP PRN PRN Reason: Insomnia Metformin HCl (Glucophage) 1,000 mg PO QAMCC [facility] Last Admin: 10/07/20 08:34 Dose: 1,000 mg Documented by: Metformin HCl (Glucophage) [facility] Last Admin: 10/06/20 17:28 Dose: 1,500 mg Documented by: Metoprolol Tartrate (Lopressor) 5 mg IV Q5M PRN PRN Reason: Heart Rate > 140 bpm Ondansetron HCl (Zofran Odt) 4 mg SL Q4-6HP PRN; Protocol PRN Reason: Nausea And Vomiting Ondansetron HCl (Zofran) 4 mg IV Q4-6HP PRN; Protocol PRN Reason: Nausea And Vomiting Potassium Chloride (Klor-Con) 40 meq PO DAILYP PRN PRN Reason: K+ < 3.5 Potassium/Phosphorus/Sodium (Neutra Phos) 2 packet PO DAILYP PRN PRN Reason: PHOS <2.5 Ramipril (Altace) 10 mg PO QDAY [facility] Last Admin: 10/07/20 08:34 Dose: 10 mg Documented by: Sodium Chloride (Saline Flush) 10 ml IV Q8 [facility] Last Admin: 10/07/20 05:44 Dose: 10 ml Documented by: Venlafaxine HCl (Effexor Xr) 150 mg PO DAILY [facility] Last Admin: 10/07/20 08:35 Dose: 150 mg Documented by: A/P Narrative A/P Narrative: * COVID-19 pneumonia-clinically improving currently on room air. However worsening interval chest imaging. Continue day4/5 remdesivir/dexamethasone/COVID-19 precautions. * Acute viral syndrome with myalgias/weakness/dehydration/diarrhea-clinically improved. Feels a lot better * Symptomatic hyponatremia secondary to poor solute intake and diarrheal losses. Back to baseline * HTN stable on home dose ramipril * Anxiety disorder stable on home dose venlafaxine/clonazepam * History of DM type II continue sitagliptin/Metformin/prandial insulin/CC diet * Full code * Prophylaxis start twice daily Lovenox Plan * Continue directed therapies * Twice daily Lovenox * Day 4 remdesivir/dexamethasone/thrombosis prophylaxis * Pre-existing medical condition management on home meds * Discharge likely in 24 hours Time Spent With Patient Time: Total time spent is greater than 50% in coordination of care (as documented) at patient's floor/unit and/or counseling patient:
[2020-10-07] MEDS: REMDESIVIR 100 MG in 0.9 % SODIUM CHLORIDE 250 ML IV SCH (10:58)
[2020-10-07] MEDS: clonazePAM 0.5 MG TABLET PO SCH (21:14)
[2020-10-08] MEDS: 0.9 % SODIUM CHLORIDE 10 ML SYRINGE IV SCH (05:15)
[2020-10-08 06:25] LABS: Basophils # (Auto) 0.02 K/mcL (0.00-0.20); Basophils % (Auto) 0.3 % (0.0-2.0); Eosinophils # (Auto) 0 K/mcL (0.00-0.70); Eosinophils % (Auto) 0 % (0.0-7.0); Hemoglobin 9.9 g/dL (12.0-15.0); Lymphocytes # (Auto) 1.86 K/mcL (1.50-4.80); Lymphocytes % (Auto) 27.2 % (15.0-49.0); Mean Cell Volume 90.4 fL (80.0-100.0); Mean Platelet Volume 9.4 fL (7.4-10.4); Monocytes # (Auto) 0.46 K/mcL (0.10-0.90); Monocytes % (Auto) 6.7 % (1.0-12.0); Neutrophils % (Auto) 65.8 % (38.0-78.0); Platelet Count 508 K/mcL (140-440); RBC 3.32 M/mcL (4.00-5.20); Red Cell Distribution Width 12.6 % (11.5-14.5); WBC 6.8 K/mcL (4.5-11.0)
[2020-10-08 07:19] LABS: ALT/SGPT 32 U/L (<40); AST/SGOT 18 U/L (<32); Albumin 2.8 gm/dL (3.2-5.2); Albumin/Globulin Ratio 1.1 (1.0-2.3); Alkaline Phosphatase 123 U/L (39-117); Bilirubin,Direct < 0.2 mg/dL (<0.3); Bilirubin,Total 0.2 mg/dL (0.1-1.0); Blood Urea Nitrogen 15 mg/dL (8-23); Calcium 8.6 mg/dL (8.6-10.4); Carbon Dioxide 26 mmol/L (22-30); Chloride 104 mmol/L (96-108); Globulin 2.5 gm/dL (2.2-3.7); Glomerular Filtration Rate 93; Glucose 224 mg/dL (70-105); Lactate Dehydrogenase 187 U/L (135-225); Phosphorous 3.4 mg/dL (2.5-4.5); Triglycerides 107 mg/dL (<150)
[2020-10-08] MEDS: INSULIN LISPRO 1 UNIT/0.01 ML UNIT SQ SCH ×2 (08:13→11:27)
[2020-10-08] MEDS: metFORMIN 500 MG TABLET PO SCH (08:14)
--- NOTE | 2020-10-08 09:17 | Discharge Summary ---
Discharge Provider Provider Patient information: Note initiated : 10/08/20 at 9:14 am Service Date, if different from initiated Date: [] Patient: Wilda Leung 70 y/o F admitted on 10/04/20 for diarrhea, fatigue. Discharge diagnosis * COVID-19 pneumonia-clinically improved currently on room air. Completed 5-day remdesivir/dexamethasone/COVID-19 precautions for additional 7 days. * Acute viral syndrome with myalgias/weakness/dehydration/diarrhea-clinically improved. Feels at baseline. Discharging today * Symptomatic hyponatremia secondary to poor solute intake and diarrheal losses. Sodium normalized to 139 * HTN stable on home dose ramipril * Anxiety disorder stable on home dose venlafaxine/clonazepam * History of DM type II continue sitagliptin/Metformin/prandial insulin/CC diet Brief hospital course Interval history: Ms. Leung is a 70 year old F with a history of DM type II/HTN/anxiety disorder who presents with 1 week onset of progressive weakness/fatigue malaise. Over the last 24 hours has been experiencing increasing nausea/diarrhea 5-6 episode in the last 24 hours. Patient was exposed to her parents who turned positive for Covid. However she was evaluated at [place] but was unable to be tested. With worsening symptoms including weakness fatigue and diarrhea she presents to [facility] ER. Initial work-up was consistent with Covid pneumonia/hyponatremia @ 126 along with SIRS with tachycardia 130 and tachypnea. Patient was started on crystalloids. Subsequently hospitalist service was consulted. At the time of my evaluation patient is fairly anxious, tachycardic at 130. Febrile at 102.5. She endorses history as above. Denies cough, shortness of breath endorses to weakness. Denies joint pain, rash, headache, photophobia. She denies loss of taste or smell. She feels hungry. 10/05-patient clinically improved. Nausea improved. Able to tolerate diet. Diarrhea less frequent 2-3 times a day. White count 5.4, sodium improved to 131, magnesium 1.2 on replacement, phosphorus 1.7, on COVID-19 to questions. Afebrile. Stable hemodynamics with resolution of tachycardia. 10/06-patient doing well. On day 3 remdesivir. Worsening chest imaging however currently on room air. Improved diarrhea. Tolerating diet. Ongoing physical therapy. White count 4.7. Electrolytes improved. Transition to twice daily Lovenox based on elevated CRP/D-dimer. Continue therapies as tolerated. Continuation support 10/07-patient doing well. No nausea or diarrhea. Tolerating diet. On day 4 remdesivir. Anticipate discharge in 24 hours. No evidence of hypoxemia. Continue therapies as tolerated. 10/08-patient doing well. Interval improvement in COVID-19 symptoms. Saturating on room air. Completed 5-day remdesivir. Continue additional 5 days dexamethasone. Maintain contact precautions for at least 7 days. Stable labs and hemodynamics. Discharging today Date of admission: 10/04/20 20:12 Discharge date: 10/08/20 Primary care physician: Manisha Tena Consults: 10/04/20 Consult to Physician [CONS] Stat Comment: Consulting Provider: Iban Rivera Reason For Exam: Physician to Consult Discharge Meds Discharge Medications Home Medications OneTouch Ultra Blue Test Strip 10/04/20 [History Confirmed 10/04/20 Last Taken Unknown] clonazepam 0.5 - 1 mg PO QHS 10/04/20 [History Confirmed 10/04/20 Last Taken 10/03/20 22:00] diphenoxylate-atropine 1 tab PO PRN PRN MDD 5 10/04/20 [History Confirmed 10/04/20 Last Taken 10/03/20 08:00] glyburide 10 mg PO BID 10/04/20 [History Confirmed 10/04/20 Last Taken 10/02/20] metformin See Rx Instructions .ROUTE .COMPLEX 10/04/20 [History Confirmed 10/04/20 Last Taken 10/02/20] ramipril 10 mg PO QDAY 10/04/20 [History Confirmed 10/04/20 Last Taken 10/02/20] venlafaxine 150 mg PO DAILY 10/04/20 [History Confirmed 10/04/20 Last Taken 10/02/20] dexamethasone 6 mg PO DAILY #5 tab 10/08/20 [Rx Last Taken Unknown] COURSE Hospital Course Hospital course: . Discharge diagnosis: COVID-19 pneumonia Time Spent with Patient Time attestation: Total time spent providing and/or coordinating discharge services: EXAM Constitutional Vitals: Temp Pulse Resp BP Pulse Ox 98.3 F 78 16 132/71 95 10/08/20 07:53 10/08/20 07:59 10/08/20 07:59 10/08/20 07:59 10/08/20 07:59 Discharge Data Data Completed and Pending Labs on day of discharge: Labs from last 24 hours 10/08/20 10/08/20 05:03 05:03 WBC 6.8 RBC 3.32 L Hgb 9.9 L Hct 30.0 L MCV 90.4 MCH 29.8 MCHC 33.0 RDW 12.6 Plt Count 508 H MPV 9.4 Neut % (Auto) 65.8 Lymph % (Auto) 27.2 Carson % (Auto) 6.7 Eos % (Auto) 0 Baso % (Auto) 0.3 Lymph # (Auto) 1.86 Carson # (Auto) 0.46 Eos # (Auto) 0 Baso # (Auto) 0.02 Absolute Neutrophils 4.49 Sodium 139 Potassium 3.9 Chloride 104 Carbon Dioxide 26 Anion Gap 9.0 BUN 15 Creatinine 0.6 GFR Calculation 93 Glucose 224 H Uric Acid 4.0 Calcium 8.6 Phosphorus 3.4 Magnesium 1.7 Total Bilirubin 0.2 Direct Bilirubin < 0.2 GGT 173 H AST 18 ALT 32 Alkaline Phosphatase 123 H Lactate Dehydrogenase 187 Total Protein 5.3 L Albumin 2.8 L Globulin 2.5 Albumin/Globulin Ratio 1.1 Triglycerides 107 Preliminary micro results at discharge 10/05/20 04:20 Blood Culture - Preliminary Blood 10/05/20 04:14 Blood Culture - Preliminary Blood Discharge Plan Patient/Caregiver Discharge Instructions Activity: increase activity as tolerated Diet: Consistent Carbohydrate Instructions: COVID-19, Hyponatremia (GEN), Pneumonia (GEN), Tachycardia (GEN) Activity Restrictions/Additional Instructions: Maintain COVID-19 precaution for additional 7 days Dexamethasone for 5 days Follow-up PCP in 2 weeks Return to ER if worsening shortness of breath fever chills noted This discharge packet is provided to you to help keep you informed about your care. We want to ensure you get everything you need when you go home. You will also be receiving a call from us in a few days to follow up with you and see how you are doing since your discharge. This gives us a chance to listen to any concerns you maybe experiencing since you were discharged or any additional needs you may have, as well as providing us feedback on your care experience. We strive to always provide excellent care and thank you for your feedback and for choosing [facility]. Prescriptions: New dexamethasone 4 mg Tablet 6 mg PO DAILY Qty: 5 RF: 0 Continued diphenoxylate-atropine 2.5-0.025 mg Tablet 1 tab PO PRN MDD 5 PRN (Reason: Diarrhea) RF: 0 metformin 500 mg Tablet See Rx Instructions .ROUTE .COMPLEX RF: 0 glyburide 5 mg Tablet 10 mg PO BID RF: 0 clonazepam 0.5 mg Tablet 0.5 - 1 mg PO QHS RF: 0 venlafaxine 150 mg Capsule,Extended Release 24hr 150 mg PO DAILY RF: 0 (DME) OneTouch Ultra Blue Test Strip Strip MISCELLANEOUS RF: 0 ramipril 10 mg Capsule 10 mg PO QDAY RF: 0 Discontinued levofloxacin 750 mg Tablet 750 mg PO Q24H RF: 0 Follow Up Plan Follow up with: Manisha Tena MD [Primary Care Provider] - 10/15/20 10:00 am Patient Disposition: Home Health Service Prognosis: Serious Rehab Potential: Fair I certify that the patient requires SNF services: No Discharge Orders: Discharge Order (Routine); Ordered 10/08/20 Ordered By: Iban Rivera
[2020-10-08] MEDS: REMDESIVIR 100 MG in 0.9 % SODIUM CHLORIDE 250 ML IV SCH (09:49)
[2020-10-08] MEDS: ENOXAPARIN 40 MG/0.4 ML SYRINGE SQ SCH (09:50)
[2020-10-08] MEDS: DEXAMETHASONE 4 MG TABLET PO SCH (09:50)
[2020-10-08] MEDS: MULTIVIT,THER IRON,CA,FA & MIN 1 TABLET PO SCH (09:50)
[2020-10-08] MEDS: RAMIPRIL 2.5 MG CAPSULE PO SCH (09:51)
[2020-10-08] MEDS: VENLAFAXINE 150 MG CAP.XL.24H PO SCH (09:51)
== END 2020-10-08 11:32 | disposition home health service (06) | DRG 177 ==
LOC: ED 14:16 → ICU 20:12
PROVIDERS: ADMIT Internal Medicine; ATTEND Internal Medicine